=== PATIENT | female | born 1965 | race Caucasian/White ===

== ENCOUNTER 2020-06-27 14:23 | Emergency (ER) | payer BC ==
[2020-06-27] MEDS ORDERED: Ketorolac Tromethamine 30 MG/ML VIAL ONE (15:16)
[2020-06-27 15:30] LABS: #Lymphocytes 1.1 thou/uL (1.20-3.40); #Monocytes 0.3 thou/uL (0.11-0.59); #Neutrophils 3.6 thou/uL (1.40-6.50); %Basophils 0.5 % (0.0-1.0); %Eosinophils 0.2 % (0.0-10.0); %Lymphocytes 22.1 % (21.0-51.0); %Monocytes 4.9 % (0.0-10.0); %Neutrophils 72.3 % (42.0-75.0); Hemoglobin 12.9 g/dL (12.0-16.0); Mean Corpuscular HGB CONC 34.1 g/dL (32.0-36.0); Mean Corpuscular Hemoglobin 30.9 pg (27.0-31.0); Mean Corpuscular Volume 90.8 fL (78.0-98.0); Mean Platelet Volume 6.8 fL (7.4-10.4); Platelet Count 278 thou/uL (130-400); RBC Distribution Width 10.6 % (11.5-14.5); Red Blood Cell (RBC) Count 4.16 mill/uL (4.20-5.40)
[2020-06-27 15:51] LABS: ALT (SGPT) 40 U/L (8-55); AST (SGOT) 27 U/L (5-34); Albumin 3.5 g/dL (3.5-5.0); Alkaline Phosphatase 81 U/L (40-110); Anion Gap 11 mmol/L (10-20); BUN (Urea Nitrogen) 7 mg/dL (9.8-20.1); Bilirubin, Total 0.5 mg/dL (0.2-1.2); Calc. Creatinine Clearance 0 mL/min (70-130); Calcium 8.8 mg/dL (7.8-10.44); Carbon Dioxide 29 mmol/L (22-29); Chloride 100 mmol/L (98-107); Globulin 3.5 g/dL (2.4-3.5); Glucose 103 mg/dL (70-105); Sodium 136 mmol/L (136-145)
== END 2020-06-27 16:15 | disposition home or self-care (01) ==
LOC: ERS 14:23
DX: U07.1 COVID-19 (principal); Z79.899 Other long term (current) drug therapy
CPT/HCPCS: 36416; 71045; 80053; 85025; 96374; J1885

== ENCOUNTER 2021-01-13 15:00 | Outpatient (CLI) | payer BC | END 2021-01-13 15:01 | disposition home or self-care (01) | LOC: BICMAMMO 15:00 | PROVIDERS: ATTEND Obstetrics & Gynecology | DX: Z12.31 Encounter for screening mammogram for malignant neoplasm of breast (principal) | CPT/HCPCS: 77063; 77067 ==

== ENCOUNTER 2023-08-01 11:51 | Outpatient (CLI) | payer BC | END 2023-08-01 11:52 | disposition home or self-care (01) | LOC: BICMAMMO 11:51 | PROVIDERS: ATTEND Nurse Practitioner Family | DX: Z12.31 Encounter for screening mammogram for malignant neoplasm of breast (principal); Z80.3 Family history of malignant neoplasm of breast | CPT/HCPCS: 77063; 77067 ==

== ENCOUNTER 2024-10-28 15:01 | Outpatient (CLI) | payer BC | END 2024-10-28 15:02 | disposition home or self-care (01) | LOC: BICMAMMO 15:01 | PROVIDERS: ATTEND Nurse Practitioner Family | DX: Z12.31 Encounter for screening mammogram for malignant neoplasm of breast (principal); Z80.3 Family history of malignant neoplasm of breast | CPT/HCPCS: 77063; 77067 ==